=== PATIENT | female | born 1975 | race Caucasian/White ===

== ENCOUNTER 2021-03-15 05:32 | Outpatient (CLI) | payer OTHER ==
[~2021-03-15] VITALS: Ht 170.2 cm; Wt 75.9 kg
[2021-03-15] MEDS ORDERED: METO50TA15 PO ×2 (11:10)
[2021-03-15] MEDS ORDERED: LORA-404 PO ×2 (11:10)
== END 2021-03-15 11:21 | disposition home or self-care (01) ==
LOC: PREOP 05:32
PROVIDERS: ATTEND Obstetrics & Gynecology
DX: Z01.818 Encounter for other preprocedural examination (principal)

== ENCOUNTER 2021-03-21 07:22 | Day surgery (SDC) | payer OTHER ==
[2021-03-21] VITALS (11 sets, daily range): BP systolic 127–153; BP diastolic 65–97
[~2021-03-21] VITALS: Ht 170.2 cm; Wt 75.9 kg
[~2021-03-21 07:22] MED LIST: LORA-404 PO; METO50TA15 PO
--- NOTE | 2021-03-21 07:24 | Progress Note-Pre Operative ---
Pre-Operative Progress Note H&P Reviewed The H&P was reviewed, patient examined and no changes noted. Date Seen by Provider: Mar 21, 2021 Time Seen by Provider: 08:00 Date H&P Reviewed: Mar 21, 2021 Time H&P Reviewed: 08:00 Pre-Operative Diagnosis: AUB, Fibroid uterus, Chronic blood loss anemia ALFRED GREEN DO Mar 21, 2021 07:24
[2021-03-21] MEDS ORDERED: CHLORASEPTIC LOZENGE MM PRN (07:30)
[2021-03-21] MEDS ORDERED: ZOLPIDEM 5 MG (AMBIEN) TAB PO PRN (07:30)
[2021-03-21] MEDS ORDERED: SIMETHICONE 80 MG (MYLICON) CHEW PO PRN (07:30)
[2021-03-21] MEDS ORDERED: HYDROmorphone 2 MG/ML VIAL (DILAUDID) IV PRN (07:30)
[2021-03-21] MEDS ORDERED: ANTACID SUSP 30 ML UDC (MYLANTA) PO PRN (07:30)
[2021-03-21] MEDS ORDERED: DOCUSATE SODIUM 100 MG (COLACE) CAP PO PRN (07:30)
[2021-03-21] MEDS ORDERED: ONDANSETRON 4 MG/2 ML (SDV) Z0FRAN IV PRN (07:30)
[2021-03-21] MEDS ORDERED: LACTATED RINGERS 1,000 ML IV SCH (07:30)
[2021-03-21] MEDS ORDERED: NALOXONE 0.4 MG/ML 1 ML (NARCAN) VIAL IV PRN (07:30)
--- NOTE | 2021-03-21 07:31 | Discharge Inst-Women's Service ---
Discharge Inst-Women's Serv Depart Medication/Instructions New, Converted or Re-Newed RX: RX on Chart Final Diagnosis s/p RATLH w tubes Problems Reviewed?: Yes Consults/Follow Up Additional Follow Up: Yes Orders/Referrals Dr. Fischer in 7-10 days and in 8 weeks Activity Activity: Activity as Tolerated Driving Instructions: No Driving for 1 Week NO SMOKING: NO SMOKING Nothing Inside Vagina: No Douching, No [place], No Tampons Diet Discharge Diet: No Restrictions Symptoms to Report to : Bleeding Excessive, Pain Increased, Fever Over 101 Degrees F, Vaginal Bleeding Increase, Questions/Concerns For Any Problems or Questions: Contact Your Physician Skin/Wound Care Infection Signs and Symptoms: Increased Redness, Foul Odor of Wound, Increased Drainage, Skin Itchy or Has a Rash, Increased Swelling, Temperature Above 101 F Operative Area Clean and Dry: Keep Incision Clean/Dry Stitches/[place]/Dermabond: Dermabond, Care of Stitches Bathing Instructions: ALFRED Mccord DO Mar 21, 2021 07:31
[2021-03-21] MEDS ORDERED: TRM50T PO (07:33)
[2021-03-21] MEDS ORDERED: IBUP-1773 PO (07:33)
[2021-03-21] MEDS ORDERED: DCS100C PO (07:33)
[2021-03-21] MEDS ORDERED: BUPIVACAINE 0.25% 30 ML (SENSORCAINE) VIAL ONE (07:35)
[2021-03-21] MEDS ORDERED: MIDAZOLAM 2 MG/2 ML (VERSED) VIAL ONE (07:49)
[2021-03-21] MEDS ORDERED: ONDANSETRON 4 MG/2 ML (SDV) Z0FRAN ONE ×3 (07:49→10:31)
[2021-03-21] MEDS ORDERED: ROCURONIUM 10 MG/ML 5 ML SYRINGE IV ONE (07:49)
[2021-03-21] MEDS ORDERED: LIDOCAINE PF 2% 5 ML (XYLOCAINE) VIAL ONE (07:49)
[2021-03-21] MEDS ORDERED: SEVOFLURANE (ULTANE) 15 ML INHAL SOLN ONE ×2 (07:49→10:12)
[2021-03-21] MEDS ORDERED: fentaNYL INJ 100 MCG/2 ML AMP ONE (07:49)
[2021-03-21] MEDS ORDERED: proPOfol 200 MG/20 ML (DIPRIVAN) VIAL IV ONE (07:49)
[2021-03-21] MEDS ORDERED: metroNIDAZOLE 500MG/100ML IVPB 100 ML IV ONE (08:00)
[2021-03-21] MEDS ORDERED: SCOPOLAMINE 1.5 MG (TRANSDERM-SCOP) PATCH TOP ONE (08:00)
[2021-03-21] MEDS ORDERED: LACTATED RINGERS 1,000 ML IV PRN ×2 (08:00)
[2021-03-21] MEDS ORDERED: LACTATED RINGERS 1,000 ML IV ONE (08:00)
[2021-03-21] MEDS ORDERED: ONDANSETRON 4 MG/2 ML (SDV) Z0FRAN IV ONE (08:00)
[2021-03-21] MEDS ORDERED: CLINDAMYCIN 900 MG/50 ML IVPB 50 ML IV ONE (08:00)
[2021-03-21] MEDS ORDERED: FAMOTIDINE 20MG/2ML IV (PEPCID) IV ONE (08:00)
[2021-03-21] MEDS ORDERED: FAMOTIDINE 20MG/2ML IV (PEPCID) ONE (08:31)
[2021-03-21] MEDS ORDERED: SCOPOLAMINE 1.5 MG (TRANSDERM-SCOP) PATCH ONE (08:33)
[2021-03-21 08:36] LABS: BASOPHILS # (AUTO) 0.1 10^3/uL (0.0-0.1); BASOPHILS % (AUTO) 1 % (0-10); EOSINOPHILS # (AUTO) 0.2 10^3/uL (0.0-0.3); EOSINOPHILS % (AUTO) 2 % (0-10); HEMATOCRIT 41 % (35-52); HEMOGLOBIN 13.8 g/dL (11.5-16.0); LYMPHOCYTES # (AUTO) 1.7 10^3/uL (1.0-4.0); LYMPHOCYTES % (AUTO) 21 % (12-44); MEAN CORPUSCULAR HEMOGLOBIN 28 pg (25-34); MEAN CORPUSCULAR HGB CONC 34 g/dL (32-36); MEAN CORPUSCULAR VOLUME 85 fL (80-99); MEAN PLATELET VOLUME 10.6 fL (9.0-12.2); MONOCYTES # (AUTO) 0.4 10^3/uL (0.0-1.0); MONOCYTES % (AUTO) 5 % (0-12); NEUTROPHILS # (AUTO) 5.6 10^3/uL (1.8-7.8); NEUTROPHILS % (AUTO) 70 % (42-75); PLATELET COUNT 282 10^3/uL (130-400); WHITE BLOOD COUNT 7.9 10^3/uL (4.3-11.0)
[2021-03-21] MEDS: KETOROLAC 30 MG/ML VIAL IVP PRN ×2 (10:00→16:50)
[2021-03-21] MEDS ORDERED: NEOSTIGMINE 3 MG/3 ML VIAL ONE (10:01)
[2021-03-21] MEDS ORDERED: GLYCOPYRROLATE 0.2 MG/ML (ROBINUL) 2 ML VIAL ONE (10:01)
[2021-03-21] MEDS ORDERED: KETOROLAC 30 MG/ML VIAL ONE (10:03)
--- NOTE | 2021-03-21 10:25 | Anesthesia-General Post-Op ---
General Patient Condition Mental Status/LOC: Same as Preop Cardiovascular: Satisfactory Nausea/Vomiting: Absent Respiratory: Satisfactory Pain: Controlled Complications: Absent Post Op Complications Complications None Follow Up Care/Instructions Patient Instructions None needed. Anesthesia/Patient Condition Patient Condition Patient is doing well, no complaints, stable vital signs, no apparent adverse anesthesia problems. No complications reported per nursing. GUY JIMENEZ CRNA Mar 21, 2021 10:25
[2021-03-21] MEDS ORDERED: HYDROmorphone 2 MG/ML VIAL (DILAUDID) IV ONE (10:30)
[2021-03-21] MEDS ORDERED: morphine INJ 10 MG/ML 1ML (SYR OR VIAL) IVP ONE (10:30)
[2021-03-21] MEDS ORDERED: MEPERIDINE (DEMEROL) INJ 50 MG/ML IVP ONE (10:30)
[2021-03-21] MEDS ORDERED: ONDANSETRON 4 MG/2 ML (SDV) Z0FRAN IVP PRN (10:30)
[2021-03-21] MEDS ORDERED: morphine INJ 10 MG/ML 1ML (SYR OR VIAL) ONE (10:31)
--- NOTE | 2021-03-21 17:31 | OPERATIVE REPORT ---
DATE OF SERVICE: PREOPERATIVE DIAGNOSES: 1. A 45-year-old female with abnormal uterine bleeding. 2. Fibroid uterus. 3. Chronic pelvic pain. POSTOPERATIVE DIAGNOSES: 1. A 45-year-old female with abnormal uterine bleeding. 2. Fibroid uterus. 3. Chronic pelvic pain. PROCEDURES PERFORMED: Robotic-assisted total laparoscopic hysterectomy with bilateral salpingectomy and left oophorectomy. SURGEON: Karl Green DO. ANESTHESIA: General endotracheal. ESTIMATED BLOOD LOSS: Minimal. URINE OUTPUT: 250 mL clear at the end of the procedure. FLUIDS: Two liters lactated Ringer's solution. FINDINGS: A bulky enlarged uterus with evidence of an intramural fundal fibroid due to distention of the uterus. There is evidence of bilateral tubal ligation with clips on bilateral fallopian tubes. The right ovary appears grossly normal. The left ovary has a large dark cystic structure attached to it consistent for possible endometrioma or chronic hemorrhagic cyst. SPECIMEN SENT: Uterus, bilateral fallopian tubes and left ovary. INDICATIONS FOR PROCEDURE: This 45-year-old female patient was consulted in my office for heavy abnormal bleeding. We attempted more conservative measures first; however, they did not seem to resolve her issue. Due to ongoing issue, she wished to proceed with a more definitive measures of dealing with her fibroid uterus, chronic pelvic pain and abnormal bleeding in the form of hysterectomy. Risks of the procedure were discussed with the patient in detail including risk of bleeding, infection, damage to the surrounding structures including, but not limited to bowel, bladder, ureter, kidneys, possible need for operation, postoperative complications that may recur, recovery timeframe, risk from anesthesia and even . After everything was discussed with the patient in detail, a consent was obtained in the preoperative area and the patient was taken to the operating room. OPERATIVE REPORT IN DETAIL: Once in the operating room, general anesthesia was found to be adequate. She was placed in the dorsal lithotomy position, prepped and draped in a normal sterile fashion. A timeout was performed. A Silvestre catheter was placed using a sterile technique. A weighted speculum inserted in the patient's vagina. Right angled retractor was used to visualize the cervix. It was grasped at 12 o'clock position using a long Allis clamp and 0 Vicryl suture was then placed at the anterior lip and the Allis clamp was removed. The suture was then used as my retraction point. I then gently sounded the uterine cavity, depth was found to be 8 cm. I selected an 8 cm Ese uterine manipulator tip and a 3.5 cm colpotomy ring. I took the manipulator tip and placed it within the uterus and the colpotomy ring was advanced around the vaginal fornix, which offers excellent manipulation on bimanual examination. I then removed all the other instruments from the patient's the vagina. I performed a change of gloves, took my attention to the abdomen, where in the left upper quadrant, two fingerbreadths subcostally at the midclavicular line, I placed a Veress needle through the skin all the way until intraperitoneal placement was confirmed using a saline drop test. An opening pressure of 2 mmHg was noted. I proceeded to max pressure of 15 mmHg using CO2 gas, at which point, I made a supraumbilical incision that is 8 mm. I placed a trocar through the incision. The intraperitoneal placement was confirmed using the da Joleen laparoscope. A brief scan of the upper abdominal anatomy appears to be grossly normal. There was no evidence upon the Veress entry site. There was no evidence of damage upon my trocar site. I then had the patient placed in a steep Trendelenburg after I removed the Veress needle and I am able to visualize all my pelvic anatomy as defined in my findings above. I placed two lateral trocars, both 8 mm trocars approximately 8 cm lateral to my supraumbilical trocar. Both these trocar sites are infiltrated using 0.25% Marcaine. Incisions were made with a knife and trocars were placed under direct visualization of the laparoscope. Once both these trocars were in place, I brought in the da Joleen robot and docked it in appropriate fashion. I placed the da Joleen vessel sealer in the left hand and monopolar ted in the right hand. I performed the following dissection on the left side starting at the infundibulopelvic ligament, I sealed and transected using a vessel sealer. I then grasped the round ligament, which I sealed and transected using a vessel sealer. I then grasped the entire broad ligament, which I sealed and transected using a vessel sealer down to the level of the lower uterine segment, at which point, I the anterior and posterior leaflet of the broad ligament. The anterior leaflet was taken around the anterior vaginal fornix and posterior leaflet was taken around the posterior vaginal fornix. This allows me to skeletonize the uterine vessels laterally, which I sealed and transected using the vessel sealer. On the right side, I started the uteroovarian ligament, which I sealed and transected using a vessel sealer. I then took my dissection down the mesosalpinx, amputating the fallopian tube from its surrounding blood supply. I then grasped the round ligament, which I sealed and transected using vessel sealer. I then grasped the entire broad ligament, which I sealed and transected using the vessel sealer. I did this down to the level of the lower uterine segment, at which point in a similar fashion to the left side, I opened up the anterior and posterior leaves of the broad ligament, anterior leaflet was taken around to the anterior vaginal fornix and posterior leaflets was taken around the posterior vaginal fornix. This allows me to skeletonize the uterine vessels laterally, which I sealed and transected using a vessel sealer. I then created a colpotomy at 12 o'clock position using a monopolar ted and took this circumferentially around the vaginal fornix, amputating the vagina away from the cervix. The entire specimen was then removed through the vagina. I then closed the lateral vaginal apices of the vaginal cuff using 2-0 Vicryl suture in a [id number] fashion colposuspending them to the uterosacral ligaments. I then closed the remainder of the vaginal cuff using 2-0 V-Loc in a running fashion, after which there was no active bleeding noted from any of my dissection planes. I then undocked the da Joleen robot and proceeded with the remainder of the case laparoscopically. I copiously irrigated the pelvis using normal saline. Once again, there was no active bleeding noted from any of my dissection planes. I then placed Surgiflo hemostatic agent over all my planes of dissection to ensure excellent postoperative hemostasis. I then had the patient taken out of steep Trendelenburg, where I removed the lateral trocars under direct visualization of laparoscope. The supraumbilical trocar was left in place to release the remainder of the insufflation and to introduce 10 mL of 0.25% Marcaine into the peritoneal cavity for postoperative pain management. I then removed this trocar as well. The skin was reapproximated using 4-0 Monocryl and Dermabond was applied to the incisions where bandages were placed in the incisions as well. Silvestre catheter was left in place. The patient tolerated the procedure well and was taken to the recovery area in stable condition. Lap and sponge count was correct at the end of the procedure. Instrument counts correct as well. Two grams of Ancef and 500 mg of Flagyl were given preoperatively for infection prophylaxis. Job ID: [id number] DocumentID: [id number] Dictated Date: 03/21/2021 10:29:02 Residential Service Technician Date: 03/21/2021 17:30:30 Dictated By: KARL GREEN DO
[2021-03-22] MEDS ORDERED: IBUPROFEN 600 MG (MOTRIN) TAB PO SCH (10:00)
== END 2021-03-21 20:00 | disposition home or self-care (01) ==
LOC: SDC 07:22 → WS 11:10 → SDC 20:00
PROVIDERS: ATTEND Obstetrics & Gynecology
DX: D25.1 Intramural leiomyoma of uterus (principal); D27.0 Benign neoplasm of right ovary; N83.201 Unspecified ovarian cyst, right side; N72 Inflammatory disease of cervix uteri; N88.8 Other specified noninflammatory disorders of cervix uteri; N70.11 Chronic salpingitis; N87.9 Dysplasia of cervix uteri, unspecified; N83.8 Other noninflammatory disorders of ovary, fallopian tube and broad ligament; I10 Essential (primary) hypertension; F41.9 Anxiety disorder, unspecified; F32.9 Major depressive disorder, single episode, unspecified; F17.210 Nicotine dependence, cigarettes, uncomplicated; Z79.899 Other long term (current) drug therapy; Z88.5 Allergy status to narcotic agent; Z88.0 Allergy status to penicillin; Z88.1 Allergy status to other antibiotic agents; Z80.3 Family history of malignant neoplasm of breast; Z11.2 Encounter for screening for other bacterial diseases
CPT/HCPCS: 36415; 84703; 85025; 86850; 86900; 86901; 87081